=== PATIENT | female | born 1965 | race Two or more races ===

== ENCOUNTER 2022-05-09 09:08 | Emergency (ER) | payer SELFPAY ==
[~2022-05-09] VITALS: Ht 162.6 cm; Wt 78.0 kg
[2022-05-09 09:22] VITALS: BP 148/88
[2022-05-09] MEDS ORDERED: AMOX1TAB16 MT (10:32)
[2022-05-09] MEDS ORDERED: VALS1TAB72 PO (10:33)
[2022-05-09] MEDS ORDERED: VALS1TAB72 MT ×2 (10:33)
[2022-05-09] MEDS ORDERED: CETI-338 PO (10:36)
[2022-05-09] MEDS ORDERED: TOPUD PO (10:43)
== END 2022-05-09 11:10 | disposition home or self-care (01) ==
LOC: ER 09:08
DX: J32.9 Chronic sinusitis, unspecified (principal); I10 Essential (primary) hypertension; E03.9 Hypothyroidism, unspecified; Z20.822 Contact with and (suspected) exposure to COVID-19
CPT/HCPCS: 87426; 99283; C9803